=== PATIENT | male | born 1960 ===

== ENCOUNTER 2016-08-01 15:12 | Emergency (ER) | payer BC ==
[2016-08-01 16:20] VITALS: RESP 18; TEMP 97.9; O2SAT 97
[2016-08-01] MEDS ORDERED: Aspirin 325 mg EC Tablets PO STA (16:35)
[2016-08-01 17:00] LABS: BASO % 0.3 % (0.0-2.0); EOS # 0.2 K/uL (0.0-0.7); HEMATOCRIT 39.2 % (35.0-51.0); MEAN CORPUSCULAR HEMOGLOBIN 29.6 pg (27.0-31.0); MEAN CORPUSCULAR HGB CONC 33.2 g/dL (33.0-37.0); MEAN PLATELET VOLUME 7.9 fL (7.2-11.7); MONO # 1.1 K/uL (0.0-0.8); MONO % 11.8 % (0.0-10.0); RED CELL DISTRIBUTION WIDTH 14.8 % (11.5-14.5); WHITE BLOOD COUNT 9.7 K/uL (4.8-10.8)
[2016-08-01 17:18] LABS: CHLORIDE 103 mmol/L (98-107); SODIUM 139 mmol/L (132-148)
[2016-08-01 17:20] LABS: BILIRUBIN,TOTAL 0.6 mg/dL (0.2-1.3); GFR AFRICAN-AMERICAN > 60
[2016-08-01 17:21] LABS: ALB/GLOB RATIO 1.1 (1.0-2.1); ALKALINE PHOSPHATASE 96 U/L (38-126); ALT/SGPT 37 U/L (21-72); AST/SGOT 32 U/L (17-59); BLOOD UREA NITROGEN 17 mg/dL (9-20); CALCIUM 8.6 mg/dl (8.6-10.4); CARBON DIOXIDE 24 mmol/L (22-30); GLUCOSE,RANDOM 104 mg/dL (75-110); TOTAL PROTEIN 7.5 g/dL (6.3-8.3)
--- NOTE | 2016-08-01 17:23 | RAD ---
HISTORY: chest pain COMPARISON: No prior. TECHNIQUE: Chest PA and lateral FINDINGS: LUNGS: Poor inspiration with low lung volumes, crowded bronchovascular markings and mild bibasilar atelectasis PLEURA: No significant pleural effusion identified. No pneumothorax apparent. CARDIOVASCULAR: Heart is mildly enlarged OSSEOUS STRUCTURES: No significant abnormalities. VISUALIZED UPPER ABDOMEN: Normal. OTHER FINDINGS: None. IMPRESSION: Poor inspiration with low lung volumes, crowded bronchovascular markings and mild bibasilar atelectasis Mild cardiomegaly.
[2016-08-01 17:51] VITALS: BP 144/77; PULSE 71
--- NOTE | 2016-08-01 17:51 | C.PDOC ---
History Of Present Illness Patient is a 55 y/o male, with no significant past medical history, that presents to the emergency department for evaluation of sudden onset of midsternal chest pain 2 hours ago. Pt states he was driving the car, when he suddenly felt pressure in the mid chest region, and stabbing pain under the left breast that radiates across the chest. Pt also reports associated sweats, shortness of breath, and lightheadedness during the episode that last for several minutes, and was resolved. Pt denies any smoking or drinking. Pt notes family history of HTN. Otherwise, denies any cough, headache, dizziness, weakness, numbness, nausea, vomiting, fever, or any other associated symptoms at this time. Time Seen by Provider: 08/01/16 16:24 Chief Complaint (Nursing): Chest Pain History Per: Patient History/Exam Limitations: no limitations Onset/Duration Of Symptoms: Hrs (2) Current Symptoms Are (Timing): Still Present Quality: Pressure, "Pain" Associated Symptoms: Diaphoresis. denies: Nausea, Syncope Modifying Factors: None Exacerbating Factors: None Alleviating Factors: None Recent travel outside of the [place]: No Additional History Per: Patient Past Medical History Reviewed: Historical Data, Nursing Documentation, Vital Signs Vital Signs: Last Vital Signs Temp 97.9 F 08/01/16 15:55 Pulse 71 08/01/16 17:51 Resp 18 08/01/16 17:51 BP 144/77 08/01/16 17:51 Pulse Ox 97 08/01/16 17:56 - Medical History PMH: No Chronic Diseases Family History: States: Hypertension - Social History Hx Alcohol Use: No Hx Substance Use: No - Immunization History Hx Tetanus Toxoid Vaccination: No Hx Influenza Vaccination: No Hx Pneumococcal Vaccination: No Review Of Systems Except As Marked, All Systems Reviewed And Found Negative. Constitutional: Positive for: Sweats. Negative for: Fever, Chills Cardiovascular: Positive for: Chest Pain, Light Headedness. Negative for: Palpitations Respiratory: Positive for: Shortness of Breath. Negative for: Cough Gastrointestinal: Negative for: Nausea, Vomiting, Abdominal Pain Neurological: Negative for: Weakness, Numbness, Headache, Dizziness Physical Exam - Physical Exam Appears: Non-toxic, No Acute Distress Skin: Normal Color, Warm, Dry Head: Atraumatic, Normacephalic Eye(s): bilateral: Normal Inspection, EOMI Oral Mucosa: Moist Neck: Normal ROM, Supple Chest: Symmetrical, No Tenderness Cardiovascular: Rhythm Regular, No Murmur Respiratory: Normal Breath Sounds, No Rales, No Rhonchi, No Wheezing Gastrointestinal/Abdominal: Soft, No Tenderness Extremity: Normal ROM, No Deformity Neurological/Psych: Oriented x3, Normal Speech, Normal Cognition ED Course And Treatment - Laboratory Results Result Diagrams: 08/01/16 16:43 08/01/16 16:43 Lab Interpretation: Normal ECG: Interpreted By Me ECG Rhythm: Sinus Rhythm ECG Interpretation: No Acute Changes O2 Sat by Pulse Oximetry: 97 (on RA) Pulse Ox Interpretation: Normal - Radiology CXR: Viewed By Me, Read By Radiologist CXR Interpretation: Yes: No Acute Disease Progress Note: Labs, EKG, CXR was ordered and reviewed. Patient was given Aspirin in the ER. Reevaluation Time: 18:17 Reassessment Condition: Improved (Patient remains asymptomatic and is comfortable. He is requesting discharge and agrees to follow up with his primary MD in the morning.) Disposition Counseled Patient/Family Regarding: Studies Performed, Diagnosis, Need For Followup - Disposition Disposition: HOME/ ROUTINE Disposition Time: 18:19 Condition: IMPROVED Additional Instructions: Follow up with Dr Mann in the [facility] tomorrow. Take an Aspirin daily. Return to the ED if pain recurs. Instructions: Chest Pain (ED) - Clinical Impression Clinical Impression: Chest pain - Scribe Statement The provider has reviewed the documentation as recorded by the Deisy Garcia Provider Attestation: All medical record entries made by the Deisy were at my direction and personally dictated by me. I have reviewed the chart and agree that the record accurately reflects my personal performance of the history, physical exam, medical decision making, and the department course for this patient. I have also personally directed, reviewed, and agree with the discharge instructions and disposition.
--- NOTE | 2016-08-01 17:52 | C.PDOC ---
Time Seen by Provider: 08/01/16 16:24 Chief Complaint (Nursing): Chest Pain Past Medical History Vital Signs: Last Vital Signs Temp 97.9 F 08/01/16 15:55 Pulse 82 08/01/16 16:10 Resp 18 08/01/16 15:55 BP 138/77 08/01/16 15:55 Pulse Ox 97 08/01/16 15:55 Family History: States: Unknown Family Hx - Social History Hx Alcohol Use: No Hx Substance Use: No - Immunization History Hx Tetanus Toxoid Vaccination: No Hx Influenza Vaccination: No Hx Pneumococcal Vaccination: No ED Course And Treatment - Laboratory Results Result Diagrams: 08/01/16 16:43 08/01/16 16:43 O2 Sat by Pulse Oximetry: 97
== END 2016-08-01 18:27 | disposition home or self-care (01) ==
LOC: C.ER 15:12
DX: R07.9 Chest pain, unspecified (principal); Z82.49 Family history of ischemic heart disease and other diseases of the circulatory system